=== PATIENT | female | born 1930 | race Caucasian/White ===

== ENCOUNTER 2017-03-24 15:51 | Emergency (ER) | payer OTHER ==
[~2017-03-24 15:51] MED LIST: ALEN70TA4 PO; CPR500 PO; CYCL5TAB PO; DOCU-94 PO; MAGNTAB4 PO; METO25TA56 PO; PRLSR20 PO; RRNITROTAB SL; TRAM-10 PO
[2017-03-24 16:11] VITALS: TEMP 36.8
[2017-03-24] MEDS ORDERED: DIPHTHERIA/TETANUS/PERTUSSIS 0.5 ML SYR/VIAL IM. ONE (16:15)
[2017-03-24] MEDS ORDERED: LORA10CA10 PO (16:22)
[2017-03-24] MEDS ORDERED: CALC-585 PO (16:22)
--- NOTE | 2017-03-24 16:51 | DIAGNOSTIC IMAGING REPORT ---
HEAD WITHOUT CONTRAST (CT) CT DOSE: 614.27 mGy.cm HISTORY: Trauma. Pain. fall TECHNIQUE: Multiaxial CT images of the head were performed without the use of intravenous contrast. A dose lowering technique was utilized adhering to the principles of ALARA. Comparison: 01/18/2016 Findings: The paranasal sinuses and mastoid air cells are clear. The calvarium and skull base are intact. The ventricles and sulci are within normal limits. There is no mass, hematoma, midline shift, or acute infarct. Moderate atrophy and chronic small vessel age-related change. Impression: No acute intracranial abnormality. Age-related change. The above report was generated using voice recognition software. It may contain grammatical, syntax or spelling errors. Electronically signed by: Romel Sierra M.D. 03/24/2017 4:50 PM Dictated Date/Time: 03/24/2017 4:48 PM
--- NOTE | 2017-03-24 17:15 | DIAGNOSTIC IMAGING REPORT ---
L KNEE 3 VIEWS CLINICAL HISTORY: l knee pain pain COMPARISON: None. DISCUSSION: Moderate degenerative change all major compartments. Osteopenia. No significant joint effusion. Degenerative chondrocalcinosis. There is no evidence for soft tissue swelling. IMPRESSION: Degenerative change. Chondrocalcinosis. Osteopenia. No acute bony abnormality. The above report was generated using voice recognition software. It may contain grammatical, syntax or spelling errors. Electronically signed by: Romel Sierra M.D. 03/24/2017 5:14 PM Dictated Date/Time: 03/24/2017 5:12 PM
--- NOTE | 2017-03-24 17:17 | DIAGNOSTIC IMAGING REPORT ---
R PELVIS/UNILATERAL HIP 2-3VIEWS CLINICAL HISTORY: fall r hip trauma. Pain. COMPARISON: 03/31/2015 DISCUSSION: Operative pinning of both hips. This is pre-existing. Old fracture right pubic ring unchanged. No acute or superimposed bony abnormality. No evidence for acetabular protrusion. Moderate degenerative change sacroiliac joints. There is no evidence for soft tissue swelling. IMPRESSION: Degenerative and postoperative change. Findings consistent with old trauma. No acute bony abnormality. The above report was generated using voice recognition software. It may contain grammatical, syntax or spelling errors. Electronically signed by: Romel Sierra M.D. 03/24/2017 5:16 PM Dictated Date/Time: 03/24/2017 5:14 PM
[2017-03-24 18:30] VITALS: BP 181/99; PULSE 82; O2SAT 96
--- NOTE | 2017-03-24 22:33 | EMERGENCY ROOM VISIT NOTE ---
History Report prepared by Nolberto: Venkata Acevedo Under the Supervision of: Dr. Adrián Herrera D.O. First contact with patient: 15:53 Stated Complaint: PAIN ALL OVER History of Present Illness The patient is an 87 year old female who presents to the Emergency Room with complaints of constant right knee pain following a fall occurring today. Per , the patient's foot got caught on his cane, causing the patient to fall. He notes that the patient fell forwards onto her knee, but did not hit her head or lose consciousness. He reports that the patient has no history of dementia and does not take any blood thinners. The patient also complains of a cut on her left hand and left knee. Pt denies headache, change in vision, fevers , chest pain, shortness of breath, nausea, vomiting, diarrhea, pain with urination, and melena. HPI limited secondary to dementia/deferred to . Source of History: patient, spouse/significant other History Limited By: dementia Onset: today Position: other (global) Timing: constant Associated Symptoms: No fevers, No headache, No chest pain, No SOB, No nausea, No vomiting, No urinary symptoms Note: The patient also complains of a cut on her left hand and knee. Review of Systems ROS limited secondary to dementia/deferred to . Past Medical & Surgical Medical Problems: (1) Asthma (2) Complicated UTI (urinary tract infection) (3) HTN (hypertension) (4) Kidney disease (5) Moderate mental retardation (6) Osteoporosis (7) Thoracic kyphosis Family History Patient reports no known family medical history. Social History Smoking Status: Never Smoker Alcohol Use: none Marital Status: Housing Status: lives with family Occupation Status: retired Current/Historical Medications Scheduled Alendronate Sodium (Fosamax), 1 DOSE PO WK Calcium Carbonate-Cholecalcife (Calcium 600 with Vitamin 600-400 mg-Unit), 1 TAB PO DAILY Cyclobenzaprine Hcl (Flexeril), 5 MG PO HS Docusate Sodium (Colace), 100 MG PO BID Loratadine (Loratadine), 10 MG PO DAILY Magnesium Chloride (Slow-Mag Tab), 64 MG PO DAILY Metoprolol Tartrate (Lopressor) (Lopressor), 12.5 MG PO BID Omeprazole (Prilosec), 20 MG PO BID Tramadol (Ultram), 50 MG PO TID Allergies Coded Allergies: Tomato (Verified Allergy, Intermediate, UNKNOWN, 03/24/17) PATIENT REPORTED Penicillins (Verified Allergy, Unknown, ., 03/24/17) Salicylates (Verified Allergy, Unknown, ., 03/24/17) Physical Exam Vital Signs Date Time Temp Pulse Resp B/P (MAP) Pulse Ox O2 Delivery O2 Flow Rate FiO2 03/24/17 18:30 82 18 181/99 96 03/24/17 16:11 36.8 90 16 150/81 95 Room Air Physical Exam GENERAL: alert, well appearing and sitting up in bed, well nourished, no distress, non-toxic HEAD: normal cephalic, atraumatic EYE EXAM: normal conjunctiva, PERRL and EOM's grossly intact OROPHARYNX: no exudate, no erythema, lips, buccal mucosa, and tongue normal and mucous membranes are moist NECK: supple, no nuchal rigidity, no adenopathy, non-tender CHEST: stable to compression anteriorly and posteriorly LUNGS: clear to auscultation. Normal chest wall mechanics HEART: no murmurs, S1 normal and S2 normal ABDOMEN: abdomen soft, non-tender, normo-active bowel sounds, no masses, no rebound or guarding. PELVIS: stable to compression anteriorly and posteriorly BACK: Back is symmetrical on inspection and there is no deformity, no midline tenderness, no CVA tenderness. UPPER EXTREMITIES: full active and passive range of motion of all joints without tenderness to palpation LOWER EXTREMITIES: full active and passive range of motion of all joints without tenderness to palpation SKIN: Abrasion over left knee, small abrasion to left third digit NEURO EXAM: Awake alert following commands, oriented to place but not year, cranial nerves II-XII grossly intact, normal speech, no gross weakness of arms, no gross weakness of legs. Medical Decision & Procedures ER Provider Diagnostic Interpretation: Radiology results as stated below per my review and the radiologist's interpretation: L KNEE 3 VIEWS CLINICAL HISTORY: l knee pain pain COMPARISON: None. DISCUSSION: Moderate degenerative change all major compartments. Osteopenia. No significant joint effusion. Degenerative chondrocalcinosis. There is no evidence for soft tissue swelling. IMPRESSION: Degenerative change. Chondrocalcinosis. Osteopenia. No acute bony abnormality. The above report was generated using voice recognition software. It may contain grammatical, syntax or spelling errors. Electronically signed by: Romel Sierra M.D. 03/24/2017 5:14 PM R PELVIS/UNILATERAL HIP 2-3VIEWS CLINICAL HISTORY: fall r hip trauma. Pain. COMPARISON: 03/31/2015 DISCUSSION: Operative pinning of both hips. This is pre-existing. Old fracture right pubic ring unchanged. No acute or superimposed bony abnormality. No evidence for acetabular protrusion. Moderate degenerative change sacroiliac joints. There is no evidence for soft tissue swelling. IMPRESSION: Degenerative and postoperative change. Findings consistent with old trauma. No acute bony abnormality. The above report was generated using voice recognition software. It may contain grammatical, syntax or spelling errors. Electronically signed by: Romel Sierra M.D. 03/24/2017 5:16 PM HEAD WITHOUT CONTRAST (CT) CT DOSE: 614.27 mGy.cm HISTORY: Trauma. Pain. fall TECHNIQUE: Multiaxial CT images of the head were performed without the use of intravenous contrast. A dose lowering technique was utilized adhering to the principles of ALARA. Comparison: 01/18/2016 Findings: The paranasal sinuses and mastoid air cells are clear. The calvarium and skull base are intact. The ventricles and sulci are within normal limits. There is no mass, hematoma, midline shift, or acute infarct. Moderate atrophy and chronic small vessel age-related change. Impression: No acute intracranial abnormality. Age-related change. The above report was generated using voice recognition software. It may contain grammatical, syntax or spelling errors. Electronically signed by: Romel Sierra M.D. 03/24/2017 4:50 PM ED Course ED COURSE: Vital signs were reviewed and showed that the patient was situationally hypertensive. The patients medical record was reviewed The above diagnostic studies were performed and reviewed. ED treatments and interventions as stated above. 1555: The patient was evaluated in room A11. A complete history and physical examination was performed. 1615: Adacel Inj 0.5ml IM 1802 : Upon reevaluation, the patient is stable. I discussed my findings with the patient and she and her understand and agree with the treatment plan. Based on the patients age, coexisting illnesses, exam and lab findings the decision to treat as an outpatient was made. The patient appeared well at the time of discharge. 1827: Upon reevaluation, the patient is feeling better. I discussed the findings and the treatment plan with the patient. She verbalizes agreement and understanding. The patient was discharged home. Medical Decision Differential diagnoses include major intracranial, cervical, spinal, thoracic, abdominal, pelvic and neurologic injury. Fracture, contusion, sprain, strain, laceration, abrasions included as well. Patient is an 87-year-old female status post mechanical fall onto her left knee. No loss consciousness or head trauma. Witnessed by to confirm story. Patient and her baseline. CT head was unremarkable. X-ray of the knee was negative. Patient was updated bedside along with . She was discharged in the care of the nozzle tender. Tetanus was previously/recently updated in the past 3 years. Discussed with Pt concerning signs and symptoms to watch out for. Pt was instructed to follow up with their PCP and discussed with the patient their option to return to the ED at anytime for persistent or worsening symptoms. The appropriate anticipatory guidance and out-patient management, including indications for return to the emergency department, were explained at length to the patient and understood. Head Trauma GCS Score: 15 Medication Reconcilliation Current Medication List: was personally reviewed by me Blood Pressure Screening Patient's blood pressure: Elevated blood pressure Blood pressure disposition: Elevated BP felt to be situational Impression Primary Impression: Fall Additional Impression: Contusion of multiple sites Scribe Attestation The scribe's documentation has been prepared under my direction and personally reviewed by me in its entirety. I confirm that the note above accurately reflects all work, treatment, procedures, and medical decision making performed by me. Departure Information Dispostion Home / Self-Care Referrals Sameer Owusu, D.O. (PCP) Forms HOME CARE DOCUMENTATION FORM, IMPORTANT VISIT INFORMATION Patient Instructions My [facility] Additional Instructions Please follow up with your primary care doctor with in the next 24 hours. Any worsening of your symptoms, please return to the ED immediately. This includes any fevers greater than 100.4, worsening pain, chest pain, shortness breath, persistent nausea, vomiting, unable to eat or drink, or any other concerning signs or symptoms from your standpoint. Please take Tylenol or Motrin as needed for pain. Problem Qualifiers Primary Impression: Fall Encounter type: initial encounter Qualified Codes: W19.XXXA - Unspecified fall, initial encounter
== END 2017-03-24 18:30 | disposition home or self-care (01) ==
LOC: EDBD 15:51 → C.EDA 15:52
DX: S80.02XA Contusion of left knee, initial encounter (principal); S60.032A Contusion of left middle finger without damage to nail, initial encounter; W01.0XXA Fall on same level from slipping, tripping and stumbling without subsequent striking against object, initial encounter; S80.212A Abrasion, left knee, initial encounter; S60.413A Abrasion of left middle finger, initial encounter; F03.90 Unspecified dementia, unspecified severity, without behavioral disturbance, psychotic disturbance, mood disturbance, and anxiety; J45.909 Unspecified asthma, uncomplicated; I10 Essential (primary) hypertension; M81.0 Age-related osteoporosis without current pathological fracture; M40.204 Unspecified kyphosis, thoracic region

== ENCOUNTER 2017-06-26 15:47 | Emergency (ER) | payer OTHER ==
[~2017-06-26] VITALS: Ht 167.6 cm; Wt 44.4 kg
[~2017-06-26 15:47] MED LIST changes: +CALC-585 PO; -CPR500 PO; +LORA10CA10 PO; -RRNITROTAB SL
[2017-06-26 16:00] VITALS: TEMP 36.4; Ht 167.6 cm; Wt 44.4 kg
--- NOTE | 2017-06-26 16:09 | EMERGENCY ROOM VISIT NOTE ---
History Report prepared by Nolberto: Addy Cummings Under the Supervision of: Dr. Anne Edward D.O. First contact with patient: 15:59 Chief Complaint: FALL Stated Complaint: FALL History of Present Illness The patient is an 87 year old female who presents to the Emergency Room via EMS with complaints of a sudden mechanical fall that occurred last night. Per the nursing staff, the patient and her live alone, but do have aides who visit the house. Case management is currently getting involved with this situation. Per the patient's , the patient fell when going to the bathroom last night, but did not hit her head. The patient has been complaining of persistent right leg pain as well as back pain ever since the fall. Per the patient's , the patient hollered to him after the fall, and she was awake and talking fine after the fall. Patient is a poor historian and helps to provide history. Source of History: patient, spouse/significant other, nursing staff Onset: Last night Position: other (global) Symptom Intensity: did not hit head Quality: other (fall - mechanical) Timing: other (sudden) Associated Symptoms: + back pain, No LOC Note: Associated symptoms: Right leg pain. Review of Systems See HPI for pertinent positives & negatives. A total of 10 systems reviewed and were otherwise negative. Past Medical & Surgical Medical Problems: (1) Asthma (2) Complicated UTI (urinary tract infection) (3) HTN (hypertension) (4) Kidney disease (5) Moderate mental retardation (6) Osteoporosis (7) Thoracic kyphosis Family History Patient reports no known family medical history. Social History Smoking Status: Never Smoker Alcohol Use: none Marital Status: Housing Status: lives with family Occupation Status: retired Current/Historical Medications Scheduled Calcium Carbonate-Cholecalcife (Calcium 600 with Vitamin 600-400 mg-Unit), 1 TAB PO BID Cephalexin (Keflex), 1 CAP PO BID Cyclobenzaprine Hcl (Flexeril), 5 MG PO HS Docusate Sodium (Colace), 100 MG PO BID Loratadine (Loratadine), 10 MG PO DAILY Metoprolol Tartrate (Lopressor) (Lopressor), 12.5 MG PO BID Tramadol (Ultram), 50 MG PO TID Scheduled PRN Magnesium Chloride (Slow-Mag Tab), 64 MG PO DAILY PRN for prn Omeprazole (Prilosec), 20 MG PO BID PRN for Heartburn Allergies Coded Allergies: Tomato (Verified Allergy, Intermediate, UNKNOWN, 06/26/17) PATIENT REPORTED Penicillins (Verified Allergy, Unknown, ., 06/26/17) Salicylates (Verified Allergy, Unknown, ., 06/26/17) Physical Exam Vital Signs Date Time Temp Pulse Resp B/P (MAP) Pulse Ox O2 Delivery O2 Flow Rate FiO2 06/26/17 21:56 76 20 168/94 100 06/26/17 20:30 84 20 164/89 99 Room Air 06/26/17 18:10 79 18 175/108 94 06/26/17 16:00 36.4 99 18 165/114 97 Room Air Physical Exam GENERAL: alert, well appearing, well nourished, no distress, non-toxic EYE EXAM: normal conjunctiva, PERRL and EOM's grossly intact OROPHARYNX: edentulous, no exudate, no erythema, lips, buccal mucosa, and tongue normal and mucous membranes are dry NECK: supple, no nuchal rigidity, no adenopathy, non-tender LUNGS: Clear to auscultation. Normal chest wall mechanics, no w/r/r HEART: no murmurs, S1 normal and S2 normal ABDOMEN: abdomen soft, non-tender, normo-active bowel sounds, no masses, no rebound or guarding. BACK: Pain to bilateral costal margins with palpation. No crepitus, no stepoff. SKIN: no rashes and no bruising UPPER EXTREMITIES: upper extremities are grossly normal. LOWER EXTREMITIES: Decreased range of motion of the right knee secondary to pain , however no obvious ecchymosis, no joint effusion, no deformities. Otherwise no edema. Normal pulses to bilateral extremities. NEURO EXAM: Mildly confused, remembers fall. Cranial nerves II-XII grossly intact, normal speech, no gross weakness of arms, no gross weakness of legs. Medical Decision & Procedures ER Provider Diagnostic Interpretation: CT:Per my review, radiologist interpretation. HEAD WITHOUT CONTRAST (CT) CT DOSE: 1044.63 mGy.cm HISTORY: Trauma trauma TECHNIQUE: Multiaxial CT images of the head were performed without the use of intravenous contrast. A dose lowering technique was utilized adhering to the principles of ALARA. Comparison: None. Findings: The paranasal sinuses and mastoid air cells are clear. The calvarium and skull base are intact. The ventricles and sulci are within normal limits. There is no mass, hematoma, midline shift, or acute infarct. Impression: No acute intracranial abnormality. The above report was generated using voice recognition software. It may contain grammatical, syntax or spelling errors. Electronically signed by: Romel Sierra M.D. 06/26/2017 7:55 PM Dictated Date/Time: 06/26/2017 7:[address] (CHEST) THORAX WITH CT DOSE: 581.54 mGy.cm HISTORY: Trauma trauma TECHNIQUE: Multiaxial CT images of the chest were performed following the intravenous administration of contrast. A dose lowering technique was utilized adhering to the principles of ALARA. COMPARISON: None. FINDINGS: The lungs are clear. The mediastinal vascular structures are within normal limits. No mediastinal or hilar lymphadenopathy. No pleural effusion or pneumothorax. Limited views of the upper abdomen demonstrate a normal liver and spleen. Several moderate compression deformities of the thoracic spine considered nonacute. IMPRESSION: Several compression deformities of the thoracic spine considered nonacute and/or indeterminate in terms of age. No acute process of the chest. The above report was generated using voice recognition software. It may contain grammatical, syntax or spelling errors. Electronically signed by: Romel Sierra M.D. 06/26/2017 7:59 PM Dictated Date/Time: 06/26/2017 7:58 PM CERVICAL SPINE W/O CT DOSE: HISTORY: Trauma trauma TECHNIQUE: Multiaxial CT images of the cervical spine were performed and reformatted in the sagittal and coronal plane without the use of contrast. A dose lowering technique was utilized adhering to the principles of ALARA. COMPARISON: None. FINDINGS: No fractures. No subluxation. Prevertebral soft tissues and the C1-C2 interval are intact. No pneumothorax. Moderate degenerative disc change throughout. IMPRESSION: No fractures within the cervical spine. Moderate degenerative change. The above report was generated using voice recognition software. It may contain grammatical, syntax or spelling errors. Electronically signed by: Romel Sierra M.D. 06/26/2017 7:54 PM Dictated Date/Time: 06/26/2017 7:53 PM ABD/PELVIS IV CONTRAST ONLY CT DOSE: HISTORY: Trauma trauma TECHNIQUE: Multiaxial CT images of the abdomen and pelvis were performed following the use of intravenous contrast. A dose lowering technique was utilized adhering to the principles of ALARA. COMPARISON STUDY: 01/18/2016 FINDINGS: Lung bases remain clear. Liver and spleen are uniform. Right kidney is negative for hydronephrosis. Left kidney is atrophic. 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 This is unchanged compared to the prior study and is a nonacute finding. The bowel pattern overall is nonobstructive. There is no significant gallbladder distention there is dense atherosclerotic change of the abdominal aorta as well as iliac vasculature. The bladder is midline. There is no free fluid within the pelvic cul-de-sac. Patient is status post bilateral hip pinning procedures. There is no old healed fracture of the right pubic ring. There are degenerative changes of all remaining osseous structures. There are several pre-existing compression deformities of the low thoracic and lumbar spine. IMPRESSION: No acute process of the abdomen or pelvis. The above report was generated using voice recognition software. It may contain grammatical, syntax or spelling errors. Electronically signed by: Romel Sierra M.D. 06/26/2017 8:04 PM Dictated Date/Time: 06/26/2017 7:59 PM Laboratory Results 06/26/17 16:56 Red Blood Count 3.82, Mean Corpuscular Volume 95.5, Mean Corpuscular Hemoglobin 31.7, Mean Corpuscular Hemoglobin Concent 33.2, Mean Platelet Volume 8.3, Neutrophils (%) (Auto) 80.6, Lymphocytes (%) (Auto) 12.6, Monocytes (%) (Auto) 6.5, Eosinophils (%) (Auto) 0.0, Basophils (%) (Auto) 0.0, Neutrophils # (Auto) 2.49, Lymphocytes # (Auto) 0.39, Monocytes # (Auto) 0.20, Eosinophils # (Auto) 0.00, Basophils # (Auto) 0.00 06/26/17 16:56 Test 06/26/17 16:56 06/26/17 17:00 White Blood Count 3.09 K/uL (4.8-10.8) Red Blood Count 3.82 M/uL (4.2-5.4) Hemoglobin 12.1 g/dL (12.0-16.0) Hematocrit 36.5 % (37-47) Mean Corpuscular Volume 95.5 fL (80-100) Mean Corpuscular Hemoglobin 31.7 pg (25-34) Mean Corpuscular Hemoglobin Concent 33.2 g/dl (32-36) Platelet Count 128 K/uL (130-400) Mean Platelet Volume 8.3 fL (7.4-10.4) Neutrophils (%) (Auto) 80.6 % Lymphocytes (%) (Auto) 12.6 % Monocytes (%) (Auto) 6.5 % Eosinophils (%) (Auto) 0.0 % Basophils (%) (Auto) 0.0 % Neutrophils # (Auto) 2.49 K/uL (1.4-6.5) Lymphocytes # (Auto) 0.39 K/uL (1.2-3.4) Monocytes # (Auto) 0.20 K/uL (0.11-0.59) Eosinophils # (Auto) 0.00 K/uL (0-0.5) Basophils # (Auto) 0.00 K/uL (0-0.2) RDW Standard Deviation 47.3 fL (36.4-46.3) RDW Coefficient of Variation 13.7 % (11.5-14.5) Immature Granulocyte % (Auto) 0.3 % Immature Granulocyte # (Auto) 0.01 K/uL (0.00-0.02) Prothrombin Time 10.2 SECONDS (9.0-12.0) Prothromb Time International Ratio 1.0 (0.9-1.1) Anion Gap 5.0 mmol/L (3-11) Est Creatinine Clear Calc Drug Dose 24.3 ml/min Estimated GFR () 51.5 Estimated GFR (Non- 44.5 BUN/Creatinine Ratio 19.5 (10-20) Calcium Level 8.7 mg/dl (8.5-10.1) Magnesium Level 2.0 mg/dl (1.8-2.4) Total Bilirubin 0.2 mg/dl (0.2-1) Aspartate Amino Transf (AST/SGOT) 22 U/L (15-37) Alanine Aminotransferase (ALT/SGPT) 22 U/L (12-78) Alkaline Phosphatase 74 U/L (45-117) Troponin I < 0.015 ng/ml (0-0.045) Total Protein 7.5 gm/dl (6.4-8.2) Albumin 3.3 gm/dl (3.4-5.0) Globulin 4.2 gm/dl (2.5-4.0) Albumin/Globulin Ratio 0.8 (0.9-2) Urine Color YELLOW Urine Appearance CLEAR (CLEAR) Urine pH 5.5 (4.5-7.5) Urine Specific Browder 1.026 (1.000-1.030) Urine Protein NEG (NEG) Urine Glucose (UA) NEG (NEG) Urine Ketones NEG (NEG) Urine Occult Blood 2+ (NEG) Urine Nitrite POS (NEG) Urine Bilirubin NEG (NEG) Urine Urobilinogen NEG (NEG) Urine Leukocyte Esterase NEG (NEG) Urine WBC (Auto) 1-5 /hpf (0-5) Urine RBC (Auto) 0-4 /hpf (0-4) Urine Hyaline Casts (Auto) 1-5 /lpf (0-5) Urine Epithelial Cells (Auto) 10-20 /lpf (0-5) Urine Bacteria (Auto) 4+ (NEG) Laboratory results per my review. Medications Administered Medications (Trade) Dose Ordered Sig/Jaguar Route Start Time Stop Time Status Last Admin Dose Admin Sodium Chloride 500 ml @ 999 mls/hr Q31M STAT IV 06/26/17 16:26 06/26/17 16:56 DC 06/26/17 17:30 999 MLS/HR Ceftriaxone Sodium (Rocephin Inj) 1 gm NOW STAT IV 06/26/17 18:34 06/26/17 18:35 DC 06/26/17 18:34 1 GM ECG Per My Interpretation Indication: other (trauma) Rate (beats per minute): 85 Rhythm: normal sinus Findings: no acute ischemic change, no ectopy, other (normal axis, normal intervals) ED Course 1605: The patient was evaluated in room C11A. A complete history and physical exam was performed. 1626: NSS 500 ml @ 999 mls/hr IV. 1834: Rocephin Inj 1 gm IV. 1835: Review of EMR - prior urine cultures grew out E. coli, typically coleman- sensitive. 1848: I reevaluated and updated the patient. The caregiver is in there now. 2049: Upon reevaluation, the patient is feeling better. I discussed the findings and the treatment plan with the patient and her caregivers. They verbalize agreement and understanding and believe they are comfortable going home. The patient was discharged home. Medical Decision Differential diagnoses include major intracranial, cervical, spinal, thoracic, abdominal, pelvic and neurologic injury. Fracture, contusion, sprain, strain, laceration, abrasions included as well. Patient given first dose of IV antibiotics here, was awake and able to tolerate sips of p.o. and both she and preferred to go home and eats felt comfortable taking him home and stated she was in her usual state of health. Patient with history of prior urinary tract infections, no evidence of bacteremia/sepsis, doubt pyelonephritis. Patient's prior urine cultures showed coleman sensitivity to antibiotics. No evidence of acute renal dysfunction, mild leukopenia possibly related to infection. Discussed with patient, her , and caregivers at bedside, close follow-up with family doctor, use/ADRs of antibiotics, adequate hydration, symptoms to watch and return for, they verbalized understanding were agreeable to plan. I have a low suspicion for any additional occult traumatic injury. Patient's vital signs stable throughout. Medication Reconcilliation Current Medication List: was personally reviewed by me Blood Pressure Screening Patient's blood pressure: Elevated blood pressure Blood pressure disposition: Referred to PCP Impression Primary Impression: Fall Additional Impressions: UTI (urinary tract infection) Weakness Scribe Attestation The scribe's documentation has been prepared under my direction and personally reviewed by me in its entirety. I confirm that the note above accurately reflects all work, treatment, procedures, and medical decision making performed by me. Departure Information Dispostion Home / Self-Care Prescriptions Cephalexin (KEFLEX) 500 Mg Cap 1 CAP PO BID for 7 Days, #14 CAP Prov: Anne Edward DO 06/26/17 Referrals Sameer Owusu, D.OJessica (PCP) Patient Instructions My [facility] Additional Instructions Please take your regular medications as prescribed. Please make sure you are drinking plenty of water. Please take the antibiotics as prescribed. Please consider eating yogurt daily or taking a probiotic while you are on an antibiotic. Please call follow-up with your family doctor as a precaution. If you have any new or concerning symptoms, including chest pain, weakness, dizziness, vomiting, back pain, are unable to urinate, or you have any other new concerns, please return the emergency room. Problem Qualifiers Primary Impression: Fall Encounter type: initial encounter Qualified Codes: W19.XXXA - Unspecified fall, initial encounter Additional Impressions: UTI (urinary tract infection) Urinary tract infection type: acute cystitis Hematuria presence: with hematuria Qualified Codes: N30.01 - Acute cystitis with hematuria
[2017-06-26] MEDS ORDERED: SODIUM CHLORIDE 0.9% 500ML 500 ML IV STA (16:26)
[2017-06-26] MEDS ORDERED: OPTIRAY 320 IV PRN (16:30)
[2017-06-26] MEDS ORDERED: SLWMEC PO (16:32)
[2017-06-26 17:22] LABS: HEMATOCRIT 36.5 % (37-47); HEMOGLOBIN 12.1 g/dL (12.0-16.0); IG# 0.01 K/uL (0.00-0.02); LYMPH % 12.6 %; LYMPH ABS # 0.39 K/uL (1.2-3.4); MEAN CELL VOLUME 95.5 fL (80-100); MEAN CORPUSCULAR HEMOGLOBIN 31.7 pg (25-34); MEAN CORPUSCULAR HGB CONC 33.2 g/dl (32-36); MEAN PLATELET VOLUME 8.3 fL (7.4-10.4); MONO % 6.5 %; NEUT % 80.6 %; NEUT ABS # 2.49 K/uL (1.4-6.5); PLATELET COUNT 128 K/uL (130-400); RED CELL DISTRIBUTION WIDTH CV 13.7 % (11.5-14.5); RED CELL DISTRIBUTION WIDTH SD 47.3 fL (36.4-46.3); WHITE BLOOD COUNT 3.09 K/uL (4.8-10.8)
[2017-06-26 17:44] LABS: ALBUMIN 3.3 gm/dl (3.4-5.0); ALT/SGPT 22 U/L (12-78); AST/SGOT 22 U/L (15-37); BLOOD UREA NITROGEN 21 mg/dl (7-18); CALCIUM 8.7 mg/dl (8.5-10.1); CARBON DIOXIDE 25 mmol/L (21-32); GLUCOSE 134 mg/dl (70-99); POTASSIUM 4.2 mmol/L (3.5-5.1); SODIUM 140 mmol/L (136-145)
[2017-06-26 17:49] LABS: ALKALINE PHOSPHATASE 74 U/L (45-117); TOTAL PROTEIN 7.5 gm/dl (6.4-8.2)
[2017-06-26] MEDS ORDERED: CEFTRIAXONE SOD INJ 1 GM ADDVIAL IV STA (18:34)
--- NOTE | 2017-06-26 19:55 | DIAGNOSTIC IMAGING REPORT ---
CERVICAL SPINE W/O CT DOSE: HISTORY: Trauma trauma TECHNIQUE: Multiaxial CT images of the cervical spine were performed and reformatted in the sagittal and coronal plane without the use of contrast. A dose lowering technique was utilized adhering to the principles of ALARA. COMPARISON: None. FINDINGS: No fractures. No subluxation. Prevertebral soft tissues and the C1-C2 interval are intact. No pneumothorax. Moderate degenerative disc change throughout. IMPRESSION: No fractures within the cervical spine. Moderate degenerative change. The above report was generated using voice recognition software. It may contain grammatical, syntax or spelling errors. Electronically signed by: Romel Sierra M.D. 06/26/2017 7:54 PM Dictated Date/Time: 06/26/2017 7:53 PM
--- NOTE | 2017-06-26 19:56 | DIAGNOSTIC IMAGING REPORT ---
HEAD WITHOUT CONTRAST (CT) CT DOSE: 1044.63 mGy.cm HISTORY: Trauma trauma TECHNIQUE: Multiaxial CT images of the head were performed without the use of intravenous contrast. A dose lowering technique was utilized adhering to the principles of ALARA. Comparison: None. Findings: The paranasal sinuses and mastoid air cells are clear. The calvarium and skull base are intact. The ventricles and sulci are within normal limits. There is no mass, hematoma, midline shift, or acute infarct. Impression: No acute intracranial abnormality. The above report was generated using voice recognition software. It may contain grammatical, syntax or spelling errors. Electronically signed by: Romel Sierra M.D. 06/26/2017 7:55 PM Dictated Date/Time: 06/26/2017 7:54 PM
--- NOTE | 2017-06-26 20:00 | DIAGNOSTIC IMAGING REPORT ---
CT (CHEST) THORAX WITH CT DOSE: 581.54 mGy.cm HISTORY: Trauma trauma TECHNIQUE: Multiaxial CT images of the chest were performed following the intravenous administration of contrast. A dose lowering technique was utilized adhering to the principles of ALARA. COMPARISON: None. FINDINGS: The lungs are clear. The mediastinal vascular structures are within normal limits. No mediastinal or hilar lymphadenopathy. No pleural effusion or pneumothorax. Limited views of the upper abdomen demonstrate a normal liver and spleen. Several moderate compression deformities of the thoracic spine considered nonacute. IMPRESSION: Several compression deformities of the thoracic spine considered nonacute and/or indeterminate in terms of age. No acute process of the chest. The above report was generated using voice recognition software. It may contain grammatical, syntax or spelling errors. Electronically signed by: Romel iSerra M.D. 06/26/2017 7:59 PM Dictated Date/Time: 06/26/2017 7:58 PM
--- NOTE | 2017-06-26 20:05 | DIAGNOSTIC IMAGING REPORT ---
ABD/PELVIS IV CONTRAST ONLY CT DOSE: HISTORY: Trauma trauma TECHNIQUE: Multiaxial CT images of the abdomen and pelvis were performed following the use of intravenous contrast. A dose lowering technique was utilized adhering to the principles of ALARA. COMPARISON STUDY: 01/18/2016 FINDINGS: Lung bases remain clear. Liver and spleen are uniform. Right kidney is negative for hydronephrosis. Left kidney is atrophic. 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 This is unchanged compared to the prior study and is a nonacute finding. The bowel pattern overall is nonobstructive. There is no significant gallbladder distention there is dense atherosclerotic change of the abdominal aorta as well as iliac vasculature. The bladder is midline. There is no free fluid within the pelvic cul-de-sac. Patient is status post bilateral hip pinning procedures. There is no old healed fracture of the right pubic ring. There are degenerative changes of all remaining osseous structures. There are several pre-existing compression deformities of the low thoracic and lumbar spine. IMPRESSION: No acute process of the abdomen or pelvis. The above report was generated using voice recognition software. It may contain grammatical, syntax or spelling errors. Electronically signed by: Romel Sierra M.D. 06/26/2017 8:04 PM Dictated Date/Time: 06/26/2017 7:59 PM
[2017-06-26] MEDS ORDERED: CEPH-571 PO (21:23)
[2017-06-26 21:56] VITALS: BP 168/94; PULSE 76; O2SAT 100
== END 2017-06-26 21:57 | disposition home or self-care (01) ==
LOC: EDBD 15:47 → C.EDC 15:48
DX: N39.0 Urinary tract infection, site not specified (principal); R53.1 Weakness; W19.XXXA Unspecified fall, initial encounter; D72.819 Decreased white blood cell count, unspecified; M79.604 Pain in right leg; M54.9 Dorsalgia, unspecified; J45.909 Unspecified asthma, uncomplicated; I10 Essential (primary) hypertension; F79 Unspecified intellectual disabilities; Z91.048 Other nonmedicinal substance allergy status; Z79.899 Other long term (current) drug therapy; Z88.0 Allergy status to penicillin; Z91.018 Allergy to other foods